=== PATIENT | male | born 1945 | race Caucasian/White ===

== ENCOUNTER 2021-03-18 12:54 | Emergency (ER) | payer SELFPAY ==
[~2021-03-18] VITALS: Ht 193 cm; Wt 100.0 kg
--- NOTE | 2021-03-18 13:36 | NUR ---
[employer], placed on legal hold by [facility] deputy prior to arrival. report received from deputies. pt presented to [facility] today stating that he wanted to erase from the records that he was labeled as a sex offender. when pt was informed that this is not possible, he made threats to end his life by jumping off bridge. on arrival, pt states "I'll just end it when I get out of here." pt a&ox4, making delusional statements about a pending supreme case court and "agent orange coming out of my spine" pt undressed completeley, belongings placed in locked cabinet. belongings secured as follows: cane, necklace with light, hat, glasses, shirt, pants, underwear, socks, shoes x 2, belt, phone, wallet with debit card and ID (void). no amaya or other cards in wallet. room secure, sitter monitoring from hallway for safety. pt instructed to provide clean catch urine, urinal at bedside. pt verbalizes undrestanding. pt refusing foot at this time, water and sprite provided. warm blanket provided.
--- NOTE | 2021-03-18 13:39 | NUR ---
pt unable to identify home meds, pt unable to even state purpose of meds.
--- NOTE | 2021-03-18 13:43 | NUR ---
report given to alyse Ayala
--- NOTE | 2021-03-18 13:54 | NUR ---
BREAK RN: PSYCH CAR MANAGER AT BEDSIDE FOR ASSESSMENT.
[2021-03-18 14:11] LABS: MEAN CORPUSCULAR HEMOGLOBIN 30.6 pg (27.5-34.5); MEAN CORPUSCULAR HGB CONC 33.7 g/dL (33.2-36.2); MEAN PLATELET VOLUME 7.9 fL (7.4-10.4); PLATELET COUNT 246 x10^3/uL (130-400); RED CELL DISTRIBUTION WIDTH 13.9 % (9.4-14.8)
[2021-03-18 14:24] LABS: ALANINE AMINOTRANSFERASE 20 U/L (12-78); ALBUMIN 3.6 g/dL (3.4-5.0); ANION GAP 3 mmol/L (5-15); CALCIUM 8.8 mg/dL (8.5-10.1); CHLORIDE 108 mmol/L (98-107)
[2021-03-18 14:26] LABS: ALKALINE PHOSPHATASE 109 U/L (45-117); BILIRUBIN,TOTAL 0.5 mg/dL (0.2-1.0); CREATININE 0.83 mg/dL (0.7-1.3); TOTAL PROTEIN 7.6 g/dL (6.4-8.2)
--- NOTE | 2021-03-18 14:28 | NUR ---
REPORT TAKEN FROM BREAK SHASHI ADAMS, PSYCH METER SHOP SUPERVISOR STILL AT BEDSIDE. ROOM SECURE. SITTER MONITORING FROM [facility] FOR SAFETY.
[2021-03-18 14:31] LABS: SALICYLATE LEVEL < 1.7 mg/dL (2.8-20.0)
[2021-03-18 14:47] LABS: <PLATELET ESTIMATE> ADEQUATE; <PLT MORPHOLOGY> NORMAL PLT MORPH; ANISOCYTOSIS 1+; BAND#(MANUAL) 0.07 x10^3/uL; BANDS%(MANUAL) 1 % (0-7); EOS#(MANUAL) 0.07 x10^3/uL (0.0-0.4); EOS% (MANUAL) 1 % (1-7); LYMPH#(MANUAL) 1.48 x10^3/uL (1-3.4); LYMPHS% (MANUAL) 20 % (22-44); MICROCYTOSIS 1+; MONOS#(MANUAL) 0.74 x10^3/uL (0.3-2.7); MONOS% (MANUAL) 10 % (2-9); SEG#(MANUAL) 5.03 x10^3/uL (1.8-6.8); SEGS% (MANUAL) 68 % (42-75)
[2021-03-18 14:48] LABS: OVALOCYTES 1+
--- NOTE | 2021-03-18 15:23 | NUR ---
rapid covid swab collected and walked to lab per policy for behavioral health transfer. pt given water cups and encouraged to attempt void, urinal at bedside. sitter monitoring from hallway for safety. room secure. awaiting urine sample and behavioral health transfer.
[2021-03-18] MEDS ORDERED: POTASSIUM CHLORIDE 10% 40 MEQ/30 ML UDC PO ONE (15:30)
[2021-03-18] MEDS ORDERED: POTASSIUM CHLORIDE 20 MEQ PACKET ONE ×2 (15:42→17:55)
[2021-03-18] MEDS: POTASSIUM CHLORIDE 10% 20 MEQ/15 ML UDC PO SCH ×2 (15:47→15:52)
--- NOTE | 2021-03-18 15:51 | NUR ---
pt medicated per emar, tolerated well. all monitors attached, pt is sinus manoj on floating derrick operator with no ectopy, rate 50s. room secure, sitter monitoring from on [facility] of [facility] for safety.
[2021-03-18] MEDS ORDERED: POTASSIUM CHLORIDE 20 MEQ PACKET PO SCH (16:00)
[2021-03-18] MEDS ORDERED: PLEASE ENTER ALLERGIES MC SCH (16:00)
[2021-03-18] MEDS ORDERED: POTASSIUM CHLORIDE 20 MEQ PACKET PO ONE ×2 (17:30→18:00)
--- NOTE | 2021-03-18 17:52 | NUR ---
order for repeat potassium clarified with OTTO Tineo, verbal order received for pt to have second dose potassium chloride , 40meq in packet form (ordered for ease of administration). pt tolerated first dose with no s/sx aspiration. doses ordered in spaced manner to decrease chance of GI distress per MD.
[2021-03-18] MEDS ORDERED: POTASSIUM CHLORIDE 20 MEQ TAB.ER.PRT PO ONE (18:00)
--- NOTE | 2021-03-18 18:22 | NUR ---
PT MEDICATED PER ORDER, TOLERATED WELL. WAS ABLE TO PROVIDE URINE SAMPLE, WALKED DOWN TO LAB. PT A&O, RESPS EVEN AND UNLABORED, VSS, NADN.
--- NOTE | 2021-03-18 18:35 | NUR ---
REPORT GIVEN TO RECEIVING SHASHI MARCANO AT RECEIVING FACILITY CT. PLAN MALORIE HANSON TO SUPPORT COORDINATOR PT @ 2030
[2021-03-18 18:37] LABS: AMPHETAMINE SCREEN, URINE Negative (Negative); BARBITURATE SCREEN, URINE Negative (Negative); BENZODIAZEPINE SCREEN, URINE Negative (Negative); CANNABINOID SCREEN, URINE Negative (Negative); COCAINE SCREEN, URINE Negative (Negative); METHADONE SCREEN, URINE Negative (Negative); OPIATE SCREEN, URINE Negative (Negative)
[2021-03-18] MEDS ORDERED: MELO7.5T31 PO (18:48)
[2021-03-18] MEDS ORDERED: vitamin b12 PO (18:48)
[2021-03-18] MEDS ORDERED: FLUO20CA23 PO (18:48)
[2021-03-18] MEDS ORDERED: MULT-826 PO (18:48)
[2021-03-18] MEDS ORDERED: QUET25TA5 PO (18:48)
[2021-03-18] MEDS ORDERED: TAMS-11 PO (18:48)
[2021-03-18] MEDS ORDERED: ATOR20TA37 PO (18:48)
[2021-03-18] MEDS ORDERED: alendronate PO (18:48)
--- NOTE | 2021-03-18 18:48 | NUR ---
preceptor RN note: this RN clarified with throughput RN who has arranged transfer to [facility]. [facility] accepting physician is Karla, report has been called to SHASHI Moran in ED. per [facility] roundhouse worker Jones, pt must be admitted through ED, seen by EDMD at [facility] and then admitted to [facility], evidently this is afterhours process.
--- NOTE | 2021-03-18 18:59 | NUR ---
report given to rani mane
--- NOTE | 2021-03-18 19:03 | NUR ---
Report from Manuel DANIELLE
--- NOTE | 2021-03-18 19:10 | NUR ---
Pt sitting up in bed, went over plan for DC, WCTM, NADN
--- NOTE | 2021-03-18 19:50 | NUR ---
pt continues to rest in bed, sitter in view of pt, NADN
--- NOTE | 2021-03-18 20:46 | NUR ---
Pt resting in bed with eyes closed, even and symmetrical chest rise , conencted to all monitors, sitter in view of pt, NADN, WCTM
--- NOTE | 2021-03-18 21:10 | NUR ---
Cristy mercedes in [facility] - 03/18/21 at 2115 by JOSEPH pt ambulatory to restroom with steady gait
[2021-03-18 21:20] VITALS: BP 133/66
== END 2021-03-18 22:09 ==
LOC: ED 15:53
DX: R45.851 Suicidal ideations (principal); Z20.822 Contact with and (suspected) exposure to COVID-19; F32.9 Major depressive disorder, single episode, unspecified
CPT/HCPCS: 36415; 80053; 80299; 80307; 80320; 80329; 85025; 87426; 99285; G0480